=== PATIENT | female | born 1990 | race African-American/Black ===

== ENCOUNTER 2017-08-24 07:41 | Emergency (ER) | payer MEDICAID ==
[~2017-08-24] VITALS: Ht 165.1 cm; Wt 113.9 kg
[2017-08-24] MEDS ORDERED: ibuprofen tablet 400 MG TABLET PO ONE (08:10)
[2017-08-24 09:23] VITALS: BP 134/78
== END 2017-08-24 09:25 | disposition home or self-care (01) ==
LOC: ER 07:42
DX: R10.31 Right lower quadrant pain (principal); R10.32 Left lower quadrant pain; R19.7 Diarrhea, unspecified; Z98.890 Other specified postprocedural states; Z88.0 Allergy status to penicillin; Z88.1 Allergy status to other antibiotic agents
CPT/HCPCS: 76856; 99284

== ENCOUNTER 2017-08-28 15:12 | Emergency (ER) | payer MEDICAID ==
[~2017-08-28] VITALS: Ht 165.1 cm; Wt 114.0 kg
[2017-08-28] MEDS ORDERED: HYDROcodone/acetaminophen 10/325mg tab PO ONE (16:15)
[2017-08-28 16:59] VITALS: BP 135/62
== END 2017-08-28 17:02 | disposition home or self-care (01) ==
LOC: ER 15:13
DX: N83.292 Other ovarian cyst, left side (principal); Z88.0 Allergy status to penicillin; Z88.1 Allergy status to other antibiotic agents
CPT/HCPCS: 76856; 99284

== ENCOUNTER 2017-11-16 09:24 | Day surgery (SDC) | payer MEDICAID ==
[2017-11-14 10:27] LABS: BASOPHILS % (AUTO) 0.5 % (0-1); EOSINOPHILS # (AUTO) 0.1 X10'3 (0-0.9); EOSINOPHILS % (AUTO) 1.6 % (0-6); LYMPHOCYTES # (AUTO) 2.2 X10'3 (1.1-4.8); LYMPHOCYTES % (AUTO) 28.1 % (21-51); MEAN CORPUSCULAR HEMOGLOBIN 29.9 PG (27.0-31.0); MEAN CORPUSCULAR HGB CONC 33.1 % (33.0-36.5); MEAN CORPUSCULAR VOLUME 90.4 FL (78-98); MEAN PLATELET VOLUME 8.1 FL (7.4-10.4); MONOCYTES # (AUTO) 0.6 X10'3 (0-0.9); MONOCYTES % (AUTO) 7.2 % (2-12); NEUTROPHILS # (AUTO) 4.9 X10'3 (1.8-7.7); NEUTROPHILS % (AUTO) 62.6 % (42-75); PRE OP HEMATOCRIT 43.1 % (35.0-45.0); PRE OP HEMOGLOBIN 14.3 g/dL (12.0-16.0); PRE OP PLATELET COUNT 431 X10'3 (140-440); RED BLOOD COUNT 4.77 X10'6 (4.20-5.60); RED CELL DISTRIBUTION WIDTH 15.2 % (11.5-14.5)
[2017-11-14 10:42] LABS: ALBUMIN 3.6 G/DL (3.4-5.0); ALBUMIN/GLOBULIN RATIO 0.7 (1.1-1.5); ALKALINE PHOSPHATASE 137 IU/L (46-116); BLOOD UREA NITROGEN 10 MG/DL (7-18); CALCIUM 9.1 MG/DL (8.5-10.1); CHLORIDE 103 MMOL/L (99-107); CREATININE 0.91 MG/DL (0.40-0.90); PRE OP ALT 43 U/L (30-65); PRE OP ANION GAP 9 (8-16); PRE OP AST 24 U/L (10-37); PRE OP BILIRUB, TOTAL 0.3 MG/DL (0.0-1.0); PRE OP GLUCOSE 92 MG/DL (70-104); PRE OP POTASSIUM 4.1 MMOL/L (3.4-5.1); PRE OP SODIUM 139 MMOL/L (135-145); TOTAL CARBON DIOXIDE 26.6 MMOL/L (24-32); TOTAL PROTEIN 8.6 G/DL (6.4-8.2); eGFR 90 ML/MIN
[2017-11-14 10:44] LABS: HCG SERUM QL NEGATIVE
[~2017-11-16] VITALS: Ht 165.1 cm; Wt 116.1 kg
[2017-11-16] VITALS (9 sets, daily range): BP systolic 135–145; BP diastolic 58–98
[~2017-11-16 09:24] MED LIST: DANA200C PO; QUET50TA15 PO; VENL150C58 PO; famotidine 20mg tablet PO ONE; ringers solution, lacted 1,000 ML IV SCH
[2017-11-16] MEDS ORDERED: BUPIVAcaine 0.5% inj/PF 30 ml vial ONE (10:54)
[2017-11-16] MEDS ORDERED: midazolam 2 mg/2 ml injection ONE (10:59)
[2017-11-16] MEDS ORDERED: fentaNYL /PF 50mcg/ml 5ml ampule ONE (11:00)
[2017-11-16] MEDS ORDERED: dexamethasone sod phosphate 4mg/ml inj. ONE ×2 (11:22→11:48)
[2017-11-16] MEDS ORDERED: sevoflurane 250ml liquid IH ONE (11:22)
[2017-11-16] MEDS ORDERED: ondansetron/PF 4mg/2ml inj IV PRN (11:45)
[2017-11-16] MEDS ORDERED: ringers solution, lacted 1,000 ML IV ONE (11:45)
[2017-11-16] MEDS ORDERED: hydrALAZINE 20mg/ml inj. IV PRN (11:45)
[2017-11-16] MEDS ORDERED: morphine 4 MG/ML inj SYRINge IV PRN ×2 (11:45)
[2017-11-16] MEDS ORDERED: labetalol 20mg/4ml (5mg/ml) syringe IV PRN (11:45)
[2017-11-16] MEDS ORDERED: meperidine/PF 50mg/ml syringe IV ONE (11:45)
[2017-11-16] MEDS ORDERED: meperidine/PF 50mg/ml syringe IV PRN ×2 (11:45)
[2017-11-16] MEDS ORDERED: esmolol inj. 0 ML IV ONE (11:48)
[2017-11-16] MEDS ORDERED: propofol inj 20 ML IV ONE (11:48)
[2017-11-16] MEDS ORDERED: rocuronium 10mg/ml inj IV ONE (11:48)
[2017-11-16] MEDS ORDERED: ondansetron/PF 4mg/2ml inj ONE (11:48)
[2017-11-16] MEDS ORDERED: LIDOcaine 1%/PF (10mg/ml) 5ml vial ONE (11:48)
[2017-11-16] MEDS ORDERED: glycopyrrolate 0.2mg/ml inj ONE (11:49)
[2017-11-16] MEDS ORDERED: neostigmine methylsulfate 1 MG/ML 10ml vial ONE (11:49)
[2017-11-16] MEDS ORDERED: esmolol inj. 10 ML IV ONE (11:49)
[2017-11-16] MEDS ORDERED: methylene blue (5mg/ml) 50mg/10ml ampul IV ONE (11:58)
[2017-11-16] MEDS ORDERED: metoprolol tartrate 1mg/ml inj IV ONE (12:11)
[2017-11-16] MEDS ORDERED: oxyCODONE/APAP 5-325mg tablet PO ONE ×2 (13:00)
== END 2017-11-16 14:30 | disposition home or self-care (01) ==
LOC: PAS 09:24
PROVIDERS: ATTEND Obstetrics & Gynecology
DX: N80.1 Endometriosis of ovary (principal); N73.6 Female pelvic peritoneal adhesions (postinfective); F32.9 Major depressive disorder, single episode, unspecified; E66.9 Obesity, unspecified; J45.909 Unspecified asthma, uncomplicated; E28.2 Polycystic ovarian syndrome; Z88.0 Allergy status to penicillin; Z88.1 Allergy status to other antibiotic agents; Z68.41 Body mass index [BMI] 40.0-44.9, adult; Z98.890 Other specified postprocedural states; Z79.899 Other long term (current) drug therapy; Z88.8 Allergy status to other drugs, medicaments and biological substances; Z90.710 Acquired absence of both cervix and uterus
CPT/HCPCS: 36415; 58662; 80053; 84703; 85025; 86885; 86900; 86901; J1100; J2001; J2250; J2405; J2704; J2710; J3010; J3490; J7120; A6250; A7000

== ENCOUNTER 2018-06-19 08:15 | Emergency (ER) | payer MEDICAID ==
[~2018-06-19] VITALS: Ht 165.1 cm; Wt 18.0 kg
[~2018-06-19 08:15] MED LIST changes: +CYCL-1 PO; +IBUP-1984 PO; -famotidine 20mg tablet PO ONE; -ringers solution, lacted 1,000 ML IV SCH
[2018-06-19 08:28] VITALS: BP 138/83
[2018-06-19] MEDS ORDERED: HYDR-3965 PO (09:58)
== END 2018-06-19 10:17 | disposition home or self-care (01) ==
LOC: ER 08:16
DX: M25.531 Pain in right wrist (principal); Z88.0 Allergy status to penicillin; Z88.1 Allergy status to other antibiotic agents; Z87.440 Personal history of urinary (tract) infections; W01.0XXA Fall on same level from slipping, tripping and stumbling without subsequent striking against object, initial encounter; Y93.89 Activity, other specified; Y92.89 Other specified places as the place of occurrence of the external cause; Y99.8 Other external cause status
CPT/HCPCS: 29125; 73110; 99283

== ENCOUNTER 2018-07-30 13:11 | Outpatient (CLI) | payer MEDICAID ==
[2018-07-30 13:08] VITALS: BP 152/101
[~2018-07-30 13:11] MED LIST changes: -IBUP-1984 PO
== END 2018-07-30 13:54 | disposition home or self-care (01) ==
LOC: ORTHO 13:11
PROVIDERS: ATTEND Nurse Practitioner Family
DX: S69.81XA Other specified injuries of right wrist, hand and finger(s), initial encounter (principal); J45.909 Unspecified asthma, uncomplicated; Z98.890 Other specified postprocedural states; Z88.0 Allergy status to penicillin; Z88.1 Allergy status to other antibiotic agents; W01.0XXA Fall on same level from slipping, tripping and stumbling without subsequent striking against object, initial encounter; Y93.89 Activity, other specified; Y92.89 Other specified places as the place of occurrence of the external cause; Y99.2 Volunteer activity
CPT/HCPCS: 73110; 99213

== ENCOUNTER 2019-12-06 05:35 | Day surgery (SDC) | payer BC, SELFPAY ==
[2019-12-02 12:05] LABS: CLARITY,URINE SLIGHTLY CLOUDY (Clear); COLOR,URINE YELLOW (Yellow); GLUCOSE, URINE NEGATIVE (Neg); KETONES,URINE NEGATIVE (Neg); LEUKOCYTE ESTERASE ,URINE NEGATIVE (Neg); NITRITES, URINE NEGATIVE (Neg); OCCULT BLOOD,URINE LARGE (Neg); PH,URINE 6.5 (4.8-8.0); PROTEIN,URINE NEGATIVE (Neg); UROBILINOGEN,URINE 0.2 E.U/dL (0.2-1.0)
[2019-12-02 12:06] LABS: UA COLLECTION TYPE CLN CATCH MIDSTREAM
[2019-12-02 12:08] LABS: BASOPHILS # (AUTO) 0.1 X10'3 (0-0.2); BASOPHILS % (AUTO) 0.8 % (0-1); EOSINOPHILS # (AUTO) 0.5 X10'3 (0-0.9); EOSINOPHILS % (AUTO) 7.5 % (0-6); LYMPHOCYTES # (AUTO) 1.6 X10'3 (1.1-4.8); LYMPHOCYTES % (AUTO) 24.3 % (21-51); MEAN CORPUSCULAR HEMOGLOBIN 30.4 PG (27.0-31.0); MEAN CORPUSCULAR HGB CONC 32.9 g/dL (33.0-36.5); MEAN CORPUSCULAR VOLUME 92.5 FL (78-98); MEAN PLATELET VOLUME 8.3 FL (7.4-10.4); MONOCYTES # (AUTO) 0.6 X10'3 (0-0.9); MONOCYTES % (AUTO) 9.8 % (2-12); NEUTROPHILS # (AUTO) 3.8 X10'3 (1.8-7.7); NEUTROPHILS % (AUTO) 57.6 % (42-75); PRE OP HEMATOCRIT 42.9 % (35.0-45.0); PRE OP HEMOGLOBIN 14.1 g/dL (12.0-16.0); PRE OP PLATELET COUNT 371 X10'3 (140-440); RED BLOOD COUNT 4.64 X10'6 (4.20-5.60)
[2019-12-02 12:16] LABS: MUCUS STRANDS FEW /LPF (Neg); SQUAMOUS EPITHELIAL CELL,UR MANY /LPF (FEW)
[2019-12-02 12:16] LABS: PRE OP PROTIME 10.8 SECONDS (9.0-12.0)
[2019-12-02 12:17] LABS: WBC,URINE 0-4 /HPF (0-4)
[2019-12-02 12:19] LABS: BACTERIA,URINE 2+ /HPF (Neg); YEAST FEW /HPF (NEGATIVE)
[2019-12-02 12:19] LABS: ALBUMIN/GLOBULIN RATIO 0.9 (1.1-1.5); ALKALINE PHOSPHATASE 142 IU/L (46-116); BLOOD UREA NITROGEN 7 MG/DL (7-18); BUN/CREATININE RATIO 7.4 (6.6-38.0); CALCIUM 9.1 MG/DL (8.5-10.1); CHLORIDE 106 MMOL/L (99-107); CREATININE 0.95 MG/DL (0.40-0.90); PRE OP ALT 10 U/L (30-65); PRE OP ANION GAP 4 (8-16); PRE OP AST 14 U/L (10-37); PRE OP BILIRUB, TOTAL 0.4 MG/DL (0.0-1.0); PRE OP GLUCOSE 94 MG/DL (70-104); PRE OP SODIUM 139 MMOL/L (135-145); TOTAL CARBON DIOXIDE 29.2 MMOL/L (24-32); TOTAL PROTEIN 8.3 G/DL (6.4-8.2); eGFR 85 ML/MIN
[2019-12-02 12:33] LABS: HCG SERUM QL NEGATIVE
[~2019-12-06] VITALS: Ht 165.1 cm; Wt 95.1 kg
[2019-12-06] VITALS (10 sets, daily range): BP systolic 119–128; BP diastolic 50–80
[~2019-12-06 05:35] MED LIST changes: -CYCL-1 PO; -DANA200C PO; +GENTAMICIN IV ONE; +NORMAL SALINE IV ONE; +QUET100T33 PO; -QUET50TA15 PO; -VENL150C58 PO; +VENL150T3 PO; +clindamycin-Cleocin 900mg/D5W 50 ML IV ONE; +famotidine 20mg tablet PO ONE; +ringers solution, lacted 1,000 ML IV SCH
[2019-12-06] MEDS ORDERED: LIDOcaine 1% (10mg/ml) 2ml vial ONE (05:54)
[2019-12-06] MEDS ORDERED: INDOCYANINE GREEN 25 MG/10 ML VIAL IV ONE (06:45)
[2019-12-06] MEDS ORDERED: BUPIVAcaine/PF 2.5 mg/ml (0.25%) 30ml vial ONE (06:45)
[2019-12-06] MEDS ORDERED: fentaNYL/PF 50MCG/1 ML 2ML syringe ONE (07:06)
[2019-12-06] MEDS ORDERED: midazolam 2 mg/2 ml injection ONE (07:06)
[2019-12-06] MEDS ORDERED: dexamethasone sod phosphate 10mg/ml inj ONE (07:07)
[2019-12-06] MEDS ORDERED: propofol inj 20 ML IV ONE (07:07)
[2019-12-06] MEDS ORDERED: rocuronium 10mg/ml inj IV ONE (07:07)
[2019-12-06] MEDS ORDERED: sevoflurane 250ml liquid IH ONE (07:07)
[2019-12-06] MEDS ORDERED: ondansetron/PF 4mg/2ml inj ONE (07:07)
[2019-12-06] MEDS ORDERED: LIDOcaine 2% (20mg/ml) 5ml vial ONE (07:08)
[2019-12-06] MEDS ORDERED: ringers solution, lacted 1,000 ML IV SCH (07:37)
[2019-12-06] MEDS ORDERED: ondansetron/PF 4mg/2ml inj IV PRN (07:40)
[2019-12-06] MEDS ORDERED: HYDROmorphone inj. 0.5 MG/0.5 ML DISP.SYRIN IV PRN ×2 (07:40)
[2019-12-06] MEDS ORDERED: fentaNYL/PF 50MCG/1 ML 2ML syringe IV PRN (07:40)
[2019-12-06] MEDS ORDERED: hydrALAZINE 20mg/ml inj. IV PRN (07:40)
[2019-12-06] MEDS ORDERED: labetalol 20mg/4ml (5mg/ml) syringe IV PRN (07:40)
[2019-12-06] MEDS ORDERED: labetalol 20mg/4ml (5mg/ml) syringe IV ONE (08:15)
[2019-12-06] MEDS ORDERED: glycopyrrolate 0.2mg/ml inj ONE (08:20)
--- NOTE | 2019-12-06 08:39 | NUR ---
Received from OR via matthew, accompanied by Anesthesiologist Shaila and report given by Anesthesiolgist. Pt sleepy but resposnive to questions states no pain. Mask to 10L and sats 100%. Lap sites open to air dermabond present, CDI. Pad present scant drainage. 20G IV to left hand LR at 100cc/hr. Will increase to induce voiding prior to discharge.
[2019-12-06] MEDS ORDERED: ketorolac tromethamine 15mg/ml inj. IV ONE (09:25)
[2019-12-06] MEDS: fentaNYL/PF 50MCG/1 ML 2ML syringe IV PRN ×2 (09:26→09:39)
--- NOTE | 2019-12-06 11:20 | NUR ---
Pt had to remain in PACU for longer than anticipated because unable to void. Patient has now voided per MD request prior to discharge.
--- NOTE | 2019-12-06 11:39 | NUR ---
PATIENT A&OX4, DENIES PAIN, V/S WNL, NEUROVASCULAR CHECKS INTACT, 20G PIV LUE D/C WITH NO COMPLICATIONS OBSERVED, SCD OFF, LAP SIGHTS OF ABDOMEN CDI. FRESH GEO PAD GIVEN TO PATIENT. I HAVE REVIEWED D/C INSTRUCTIONS WITH PATIENT AND FAMILY AND THEY HAVE VERBALIZED UNDERSTANDING. PATIENT D/C HOME WITH FAMILY TO TRANSPORT AND ALL BELONGINGS. PT RECEIVED PAIN SCRIPT FROM .
== END 2019-12-06 11:39 | disposition home or self-care (01) ==
LOC: PAS 05:35
PROVIDERS: ATTEND Obstetrics & Gynecology
DX: N80.2 Endometriosis of fallopian tube (principal); N80.0 Endometriosis of uterus; N73.6 Female pelvic peritoneal adhesions (postinfective); F32.9 Major depressive disorder, single episode, unspecified; Z98.890 Other specified postprocedural states; Z88.0 Allergy status to penicillin; Z88.8 Allergy status to other drugs, medicaments and biological substances; Z79.899 Other long term (current) drug therapy; Z11.59 Encounter for screening for other viral diseases
CPT/HCPCS: 36415; 58662; 80053; 81001; 82948; 84703; 85025; 85610; 85730; 86885; 86900; 86901; 87635; C1758; J1100; J1580; J1885; J2001; J2250; J2405; J2704; J3010; J3490; J7120; A4618